=== PATIENT | male | born 1990 | race Caucasian/White ===

== ENCOUNTER 2017-11-02 04:24 | Emergency (ER) | payer OTHER | END 2017-11-02 07:02 | disposition home or self-care (01) | LOC: ERS 04:24 | DX: J06.9 Acute upper respiratory infection, unspecified (principal); F17.210 Nicotine dependence, cigarettes, uncomplicated; Z71.6 Tobacco abuse counseling | CPT/HCPCS: 99406 ==

== ENCOUNTER 2019-09-04 16:02 | Outpatient (CLI) | payer OTHER ==
--- NOTE | 2019-09-04 16:22 | RAD ---
TWO VIEWS LUMBAR SPINE: 09/04/19 COMPARISON: None. HISTORY: Chronic lumbar spine for over a year. FINDINGS: Two views of the lumbosacral spine shows normal height and alignment of the vertebral bodies and inte rvertebral bodies and intervertebral discs without fracture or subluxation. No significant degenerati ve changes are seen. The sacroiliac joints are unremarkable. IMPRESSION: Unremarkable exam. POS: E[facility]
== END 2019-09-04 16:03 | disposition home or self-care (01) ==
LOC: BICRAD 16:02
PROVIDERS: ATTEND Family Medicine
DX: G89.29 Other chronic pain (principal)
CPT/HCPCS: 72100

== ENCOUNTER 2019-11-14 12:40 | Outpatient (CLI) | payer OTHER ==
--- NOTE | 2019-11-14 13:23 | RAD ---
3 views of the sacroiliac joints: 11/14/2019 COMPARISON: None HISTORY: Low back pain with stiffness FINDINGS: No fracture or dislocation. No radiopaque foreign body or subcutaneous gas. No widening of the sacroiliac joints or the pubic symphysis. IMPRESSION: No acute findings.
--- NOTE | 2019-11-14 13:28 | CT ---
CT of thelumbar spine: 11/14/2019 COMPARISON:None available HISTORY:Low back pain TECHNIQUE: Serial axial CT imaging at2 mm intervals from thelower thoracic spine through lower sacrum without contrast. Coronal and sagittal reformatted imaging obtained Findings:There is mild subchondral sclerosis involving bilateral sacroiliac joint suggesting a degree of nonspecific sacroiliitis. No erosive change noted. Lumbar vertebral body height and alignment is normal throughout the lumbar spine. Evaluation for cent ral canal and/or neural foraminal stenosis is limited on CT. At the T12-L1,12, L2-3, L3-4, L4-5, and L5-S1 levels there is no osseous cause of significant central canal or neural foraminal stenosis. No lytic or blastic bone lesion. No acute fracture or dislocation. Imaged portions of the retroperitoneum appear grossly unremarkable. Impression:No acute findings.
== END 2019-11-14 12:41 | disposition home or self-care (01) ==
LOC: SCSCT 12:40
PROVIDERS: ATTEND Nurse Practitioner Family
DX: M54.5 Low back pain (principal)
CPT/HCPCS: 72131; 72202

== ENCOUNTER 2020-04-07 15:44 | Outpatient (CLI) | payer OTHER ==
--- NOTE | 2020-04-07 16:13 | RAD ---
CERVICAL SPINE FIVE VIEWS: 04/07/20 INDICATION: Neck pain. FINDINGS: Spinal alignment is preserved. Prevertebral soft tissues are normal appearing. Lung apices are clear. Lateral masses are symmetric. No acute fracture or subluxation is evident. IMPRESSION: No acute osseous abnormality. POS: BH
== END 2020-04-07 15:45 | disposition home or self-care (01) ==
LOC: BICRAD 15:44
PROVIDERS: ATTEND Internal Medicine Rheumatology
DX: M54.2 Cervicalgia (principal)
CPT/HCPCS: 72040